=== PATIENT | male | born 1975 | race Caucasian/White ===

== ENCOUNTER 2017-02-06 16:24 | Emergency (ER) | payer OTHER ==
[~2017-02-06] VITALS: Ht 172.7 cm; Wt 146.5 kg
[2017-02-06 16:38] VITALS: BP 164/113
--- NOTE | 2017-02-06 18:52 | NUR ---
PATIENT PRESENTS TO ED DUE TO C/O CONGESTION,WITH THICK MUCUS, SORE THROAT, RUNNY NOSE X 3 DAYS, PT VERBALIZED MY EYES WHEN I WAKE UP IN THE MORNING HAS ALSO A LOT OF MUCUS . DENIES N/V/D; SKIN IS PINK/WARM/DRY; AAOX4 WITH EVEN AND STEADY GAIT; LUNGS CLEAR BL; HR EVEN AND REGULAR; PATIENT STATES PAIN OF 10/10/SORE THROAT AT THIS TIME; PT SAYS HE HAS FEVER STARTED YESTERDAY. PATIENT POSITIONED FOR COMFORT; HOB ELEVATED; BEDRAILS UP X2; BED DOWN. ER MD MADE AWARE OF PT STATUS.
--- NOTE | 2017-02-06 18:54 | NUR ---
PT TO BED 6
--- NOTE | 2017-02-06 19:08 | NUR ---
Pt report given to ANKUSH. Transfer of care at this time.
--- NOTE | 2017-02-06 19:45 | NUR ---
Patient discharged with v/s stable. Written and verbal after care instructions given and explained. Patient alert, oriented and verbalized understanding of instructions. Ambulatory with steady gait. All questions addressed prior to discharge. ID band removed. Patient advised to follow up with PMD. Rx of AZITHROMYCIN 250 MG, CODEINE/PHENELEPHRINE/PROMETHAZINE 10/5/6.25MG/5ML given. Patient educated on indication of medication including possible reaction and side effects. Opportunity to ask questions provided and answered.
[2017-02-06 20:05] VITALS: BP 135/85
== END 2017-02-06 19:45 | disposition home or self-care (01) ==
LOC: MED 16:24
DX: J20.9 Acute bronchitis, unspecified (principal); R03.0 Elevated blood-pressure reading, without diagnosis of hypertension; J02.9 Acute pharyngitis, unspecified; Z88.0 Allergy status to penicillin

== ENCOUNTER 2017-08-28 09:24 | Emergency (ER) | payer OTHER ==
[~2017-08-28] VITALS: Ht 172.7 cm; Wt 108.9 kg
[2017-08-28 09:43] VITALS: BP 154/97
[2017-08-28 10:13] LABS: BASOPHILS # (AUTO) 0.2 K/uL (0.00-0.22); BASOPHILS % (AUTO) 2.3 % (0.0-2.0); EOSINOPHILS # (AUTO) 0.2 K/uL (0-0.4); EOSINOPHILS % (AUTO) 2.3 % (0.0-4.0); HEMATOCRIT 47.7 % (36-52); HEMOGLOBIN 16.1 g/dL (12.0-18.0); LYMPHOCYTES # (AUTO) 2.2 K/uL (2.0-11.5); LYMPHOCYTES % (AUTO) 29.7 % (20.5-51.1); MEAN CORPUSCULAR HEMOGLOBIN 31 pg (27-31); MEAN CORPUSCULAR HGB CONC 34 g/dL (33-37); MEAN CORPUSCULAR VOLUME 90 fL (80-94); MONOCYTES # (AUTO) 0.4 K/uL (0.8-1.0); MONOCYTES % (AUTO) 4.8 % (1.7-9.3); NEUTROPHILS # (AUTO) 4.5 K/uL (1.8-7.7); NEUTROPHILS % (AUTO) 60.9 % (42.2-75.2); PLATELET COUNT (AUTO) 203 K/uL (140-450); RED BLOOD CELL COUNT(AUTO) 5.28 MIL/uL (4.20-6.10)
[2017-08-28 10:31] LABS: ALBUMIN 3.8 g/dL (3.4-5.0); ANION GAP 13.7 (8-16); CARBON DIOXIDE 25.5 mmol/L (21-32); POTASSIUM 4.2 mmol/L (3.5-5.1); TOTAL BILIRUBIN 0.7 mg/dL (0.0-1.0)
[2017-08-28 10:41] LABS: WHITE BLOOD COUNT (AUTO) 7.5 K/uL (4.8-10.8)
--- NOTE | 2017-08-28 10:52 | NUR ---
Patient ambulated to bed 7 at this time.
--- NOTE | 2017-08-28 10:54 | NUR ---
41/M BIB SELF C/O GEN WEAKNESS X2 WEEKS. PT REPORTS POLYURIA, POLYPHAGIA, POLYDIPSIA. DENIES N/V/D; AAOX4 WITH EVEN AND STEADY GAIT; LUNGS CLEAR BL; HR EVEN AND REGULAR; PT DENIES ANY FEVER, CP, SOB, OR COUGH AT THIS TIME; PATIENT STATES PAIN OF 0/10 AT THIS TIME; PATIENT POSITIONED FOR COMFORT; HOB ELEVATED; BEDRAILS UP X2; BED DOWN. YOEL HERNANDEZ MADE AWARE OF PT STATUS. Addendum: 08/28/17 at 1118 by [email or web address] PT STS BLURRY EYES.
[2017-08-28] MEDS ORDERED: INSULIN HUMAN REGULAR 100 UNITS/ML 10 ML VIAL SUBQ ONE (12:00)
--- NOTE | 2017-08-28 13:13 | NUR ---
Patient appears to be resting comfortably in bed. BP 135/87; DENIES HEADACHE OR DIZINESS AT THIS TIME.. Respirations even and unlabored.WILL CONTINUE TO MONITOR.
[2017-08-28 13:25] VITALS: BP 135/87
--- NOTE | 2017-08-28 13:25 | NUR ---
Patient discharged with v/s stable. Written and verbal after care instructions given and explained. Patient alert, oriented and verbalized understanding of instructions. Ambulatory with steady gait. All questions addressed prior to discharge. ID band removed. Patient advised to follow up with PMD. Rx of GLUCOPHAGE given. Patient educated on indication of medication including possible reaction and side effects. Opportunity to ask questions provided and answered.
== END 2017-08-28 13:25 | disposition home or self-care (01) ==
LOC: MED 09:24
DX: E11.9 Type 2 diabetes mellitus without complications (principal); Z88.0 Allergy status to penicillin
CPT/HCPCS: 36415; 80053; 82948; 83036; 85025; 96372; 99284; J1815

== ENCOUNTER 2019-05-22 14:20 | Emergency (ER) | payer OTHER ==
[~2019-05-22] VITALS: Ht 172.7 cm; Wt 103.4 kg
--- NOTE | 2019-05-22 14:35 | NUR ---
pt ambulated to bed 7
[2019-05-22 14:36] VITALS: BP 142/96
--- NOTE | 2019-05-22 14:45 | NUR ---
C/O dizziness, blurry vision, headache and anxiety x 2 days. Pt states he has not had his DM, HTN, and anxiety medication for 3 days because he does not have access to them right now due to family situation. He is not sure if he is feeling this way because of high BS or his anxiety. FSBS 110. Neuro check intact, pt a&o, answering questions appropriately, speaking clearly. Sking is warm, dry, normal for ethnicity. Bed in low position, side rail up x1
--- NOTE | 2019-05-22 14:53 | NUR ---
Dr. Jean-Baptiste evaluating patient at bedside.
[2019-05-22 15:13] VITALS: BP 142/96
--- NOTE | 2019-05-22 15:13 | NUR ---
Patient discharged with v/s stable. Written and verbal after care instructions given and explained. Patient alert, oriented and verbalized understanding of instructions. Ambulatory with steady gait. All questions addressed prior to discharge. ID band removed. Patient advised to follow up with PMD. Rx of losartan, trazodone, motrin, celexa, hydrochlorothiazide,& metformin given. Patient educated on indication of medication including possible reaction and side effects. Opportunity to ask questions provided and answered.
== END 2019-05-22 15:15 | disposition home or self-care (01) ==
LOC: MED 14:20
DX: R42 Dizziness and giddiness (principal); R53.1 Weakness; R11.2 Nausea with vomiting, unspecified; R06.02 Shortness of breath; F41.9 Anxiety disorder, unspecified; E11.9 Type 2 diabetes mellitus without complications; I10 Essential (primary) hypertension; F17.200 Nicotine dependence, unspecified, uncomplicated; Z76.0 Encounter for issue of repeat prescription; Z88.0 Allergy status to penicillin
CPT/HCPCS: 82948; 99283